=== PATIENT | female | born 1995 | race Caucasian/White ===

== ENCOUNTER 2019-01-17 22:10 | Emergency (ER) | payer BC, OTHER ==
[2019-01-17 23:38] LABS: ABSOLUTE BASOPHILS # (AUTO) 0.1 10^3/uL (0.0-0.2); ABSOLUTE EOSINOPHILS # (AUTO) 0.6 10^3/uL (0.0-0.6); ABSOLUTE LYMPHOCYTES (AUTO) 3.2 10^3/uL (0.5-4.7); ABSOLUTE MONOCYTES (AUTO) 0.8 10^3/uL (0.1-1.4); ABSOLUTE NEUT (AUTO) 6.5 10^3/uL (1.7-8.2); BASOPHILS % (AUTO) 0.8 % (0-2); EOSINOPHILS % (AUTO) 5.2 % (0-6); HEMATOCRIT 41.4 % (36.0-47.0); HEMOGLOBIN 13.8 g/dL (12.0-15.5); LYMPHOCYTES % (AUTO) 28.9 % (13-45); MEAN CORPUSCULAR HEMOGLOBIN 29.6 pg (27.0-33.4); MEAN CORPUSCULAR HGB CONC 33.4 g/dL (32.0-36.0); MEAN CORPUSCULAR VOLUME 89 fl (80-97); MONOCYTES % (AUTO) 7.3 % (3-13); PLATELET COUNT 293 10^3/uL (150-450); RED BLOOD COUNT 4.67 10^6/uL (3.72-5.28); RED CELL DISTRIBUTION WIDTH 12.8 % (11.5-14.0); SEGMENTED NEUTROPHILS % (AUTO) 57.8 % (42-78); TOTAL CELLS COUNTED % (AUTO) 100 %; WHITE BLOOD COUNT 11.2 10^3/uL (4.0-10.5)
--- NOTE | 2019-01-18 00:30 | ER Document Report ---
ED General - General Chief Complaint: Bloody Stools Stated Complaint: BLOOD IN STOOL Time Seen by Provider: 01/18/19 00:15 Primary Care Provider: ANTONIO MICHELLE MD [ACTIVE STAFF] - Follow up in 3-5 days EVERARDO ÁLVAREZ MD [ACTIVE STAFF] - Follow up in 3-5 days Notes: Patient is a pleasant 23-year-old female presents with complaint of noticing blood in the toilet. Patient says that she fell actually the bathroom. She wiped first noticeable blood in the toilet paper and then had what she thought was may bowel movement but ended up being a few small blood clots going to the toilet in the toilet water turned red. She has not had any further episodes of this. She did not have any episodes leading up to this. She says her last 3 to 4 days she is been very constipated and been having hard stools having to bear down to have bowel movements. No vomiting. No abdominal pain. No fevers. No other complaints at this time. She does have a family history of colon cancer and that she has an uncle who is in his 40s who has been battling colon cancer. Patient herself has never had colonoscopies. TRAVEL OUTSIDE OF THE [place] IN LAST 30 DAYS: No - Related Data Allergies/Adverse Reactions: morphine Allergy (Mild, Verified 01/18/19 00:39) Past Medical History - Social History Smoking Status: Never Smoker Frequency of alcohol use: None Drug Abuse: None Family History: Reviewed & Not Pertinent Review of Systems - Review of Systems Notes: My Normal Review Basic REVIEW OF SYSTEMS: CONSTITUTIONAL : Denies fever, chills, or sweats. Denies recent illness. RESPIRATORY: Denies cough, cold, or chest congestion. Denies shortness of breath, difficulty breathing, or wheezing. GASTROINTESTINAL: Denies abdominal pain. Denies nausea, vomiting, or diarrhea. Had some constipation. Rectal bleeding. MUSCULOSKELETAL: Denies neck or back pain or joint pain or swelling. SKIN: Denies rash or skin lesions. HEMATOLOGIC : Denies easy bruising or bleeding. NEUROLOGICAL: Denies altered mental status or loss of consciousness. Denies headache. Denies weakness or paralysis or loss of use of either side. Denies problems with gait or speech. Denies sensory or motor loss. ALL OTHER SYSTEMS REVIEWED AND NEGATIVE. Physical Exam - Vital signs Vitals: Temp Pulse Resp BP Pulse Ox 98.2 F 83 20 144/85 H 99 01/17/19 22:24 01/17/19 22:24 01/17/19 22:24 01/17/19 22:24 01/17/19 22:24 - Notes Notes: General Appearance: Well nourished, alert, cooperative, no acute distress, no obvious discomfort. Well appearing. Vitals: reviewed, See vital signs table. Eyes: PERRL, EOMI, Conjuctiva clear Lungs: No wheezing, No rales, No rhonci, No accessory muscle use, good air exchange bilaterally. Heart: Normal rate, Regular rythm, No murmur, no rub Abdomen: Normal BS, soft, No rigidity, No abdominal tenderness, No guarding, no rebound, no abdominal masses, no organomegaly Rectal exam: Rectal exam performed with female RN, Eric, at bedside. Patient has no gross blood on exam. She does have one small hemorrhoid. Is not thrombosed. Is not swollen or inflamed. Skin: warm, dry, appropriate color, no rash Neuro: speech clear, oriented x 3, normal affect, responds appropriately to questions. Course - Re-evaluation Re-evalutation: 01/18/19 00:28 On exam patient did not have any gross blood. She did have one small hemorrhoid. Based on her recent history of constipation with possible do suspect she probably has hemorrhoid that caused some bleeding into the rectum which led to the blood passing from her rectum. She does have a strong family history of colon cancer and that her uncles in his 40s and is already had multiple episodes of colon cancer requiring treatment. I informed her it still important that she does follow-up with GI for further evaluation possible possible colonoscopy due to rectal bleeding and family history of colon cancer. Patient to return to ER if she has dizziness, lightheadedness, difficulty breath ing, recurrent heavy bleeding, or she feels unwell in any way. Patient agrees with plan will be discharged home. Dictation of this chart was performed using voice recognition software; therefore, there may be some unintended grammatical errors. - Vital Signs Vital signs: Temp Pulse Resp BP Pulse Ox 98.5 F 71 16 134/80 H 98 01/18/19 00:38 01/18/19 00:38 01/18/19 00:38 01/18/19 00:38 01/18/19 00:38 - Laboratory Result Diagrams: 01/17/19 23:20 Laboratory results interpreted by me: 01/17/19 23:20 WBC 11.2 H Discharge - Discharge Clinical Impression: Rectal bleeding Condition: Good Disposition: HOME, SELF-CARE Additional Instructions: The most likely cause of the blood from the rectum is hemorrhoids in relation to constipation. Please eat fiber. You can take [id number] fiber supplement such as Metamucil or FiberCon. He can also eat dried fruits such as raisins and prunes. This will help soften your stool so you are not having to bear down. I think colon polyp or cancer is less likely; however, you do have a strong family history of colon cancer and therefore it still very important that you follow-up with a GI physician to discuss her that colonoscopy as needed. Please return to the ER if you have heavy bleeding, dizziness, lightheadedness, or feel like you are worsening in any way. Referrals: EVERARDO ÁLVAREZ MD [ACTIVE STAFF] - Follow up in 3-5 days ANTONIO MICHELLE MD [ACTIVE STAFF] - Follow up in 3-5 days
[2019-01-18 00:44] VITALS: BP 134/80
== END 2019-01-18 00:47 | disposition home or self-care (01) ==
LOC: ER 22:10
DX: K62.5 Hemorrhage of anus and rectum (principal); K59.00 Constipation, unspecified; K64.9 Unspecified hemorrhoids; Z80.0 Family history of malignant neoplasm of digestive organs; Z88.5 Allergy status to narcotic agent
CPT/HCPCS: 36415; 85025; 99283